=== PATIENT | female | born 1995 | race Caucasian/White ===

== ENCOUNTER 2023-12-11 09:55 | Outpatient (CLI) | payer BC, SELFPAY ==
--- NOTE | 2023-12-11 10:45 | W.ANESCHARGE ---
Anesthesia Charges Start Date/Time Anesthesia Start Date: 12/11/23 Anesthesia Start Time: 10:53 Stop Date/Time Anesthesia Stop Date: 12/11/23 Anesthesia Stop Time: 11:20
--- NOTE | 2023-12-11 11:16 | W.ANESCHARGE ---
Anesthesia Charges Start Date/Time Anesthesia Start Date: 12/11/23 Anesthesia Start Time: 10:53 Stop Date/Time Anesthesia Stop Date: 12/11/23 Anesthesia Stop Time: 11:20
== END 2023-12-11 09:56 | disposition home or self-care (01) ==
LOC: OP CLINIC 10:00
PROVIDERS: PCP Family Medicine; Visit Provider Internal Medicine Gastroenterology
DX: R19.7 Diarrhea, unspecified (principal)
CPT/HCPCS: 00811; 45380; 88305; J2704